=== PATIENT | male | born 1965 | race Caucasian/White ===

== ENCOUNTER 2023-03-19 07:10 | Outpatient (RCR) | payer OTHER, SELFPAY | END 2023-03-29 23:59 | disposition home or self-care (01) | LOC: SPT 07:10 | PROVIDERS: Visit Provider Physical Medicine & Rehabilitation | DX: M25.531 Pain in right wrist (principal); M79.641 Pain in right hand | CPT/HCPCS: 97750 ==

== ENCOUNTER 2023-12-31 09:50 | Day surgery (SDC) | payer SELFPAY ==
[2023-12-31] VITALS (11 sets, daily range): BP systolic 116–180; BP diastolic 63–90; PULSE 47–72; RESP 11–18; TEMP 36.2–36.6; O2SAT 94–98
[2023-12-31] MEDS: sodium chloride 0.9% 1,000 ML 30 ML IV (10:09)
--- NOTE | 2023-12-31 10:15 | W.PM.OPSUD ---
Surgery/Procedure H&P Update DATE OF PROCEDURE: December 31, 2023 DATE H&P PERFORMED: 12/09/23 H&P UPDATE INFORMATION: I have reviewed H&P completed within last 30 days, I have examined patient prior to procedure and No changes to prior documentation PLANNED PROCEDURE: Operation Date: 12/31/23 11:10 Proposed Procedures p Laparoscopic Cholecystectomy(Not Applicable) - Ignacio Roman DO
[2023-12-31 10:23] LABS: Glucose Point of Care 177 mg/dL (70-110)
--- NOTE | 2023-12-31 10:23 | ANES.PREANE2 ---
Pre-Anesthetic Assessment Height/Weight: Height 1.78 m Temp Pulse Resp BP Pulse Ox O2 Del Method 98 F 72 18 180/90 98 Room Air 12/31/23 10:13 12/31/23 10:13 12/31/23 10:13 12/31/23 10:13 12/31/23 10:13 12/31/23 10:13 Operation Date: 12/31/23 11:10 Proposed Procedures p Laparoscopic Cholecystectomy(Not Applicable) - Ignacio Roman DO Familial anesthetic complications: None Was Beta Yossi taken within 24 hours: N/A Was Clonidine taken within 24 hours: N/A Last intake: Intake Last Liquid Date 12/30/23 Last Liquid Time 14:00 Last Solid Date 12/30/23 Last Solid Time 14:00 Social No alcohol and No tobacco Exam alert, oriented x 3, clear to auscultation bilaterally and regular rate & rhythm Airway Mallampati: Class III Dentition: false CV/HEM Hypertension GI Gastroesophageal Reflux Disease Metabolic Diabetes Mellitus and Hyperlipidemia Anesthetic Plan ASA status: 3 Anesthesia: General Risk of > 500 ml blood loss (7ml/kg in children): No Medications/Allergies Home Medications Medication Instructions Recorded Confirmed Last Taken Type atenolol 50 mg tablet 50 mg PO DAILY 12/09/23 12/31/23 12/31/23 History 25 mg metformin 500 mg tablet 1,000 mg PO BID 12/09/23 12/31/23 12/30/23 History morning pantoprazole 40 mg tablet,delayed 40 mg PO BID 6 weeks #84 tabs 12/09/23 12/31/23 12/30/23 Rx release (Protonix) simvastatin 10 mg tablet 10 mg PO DAILY 12/09/23 12/31/23 Unknown History Allergies Allergy/AdvReac Type Severity Reaction Status Date / Time No Known Allergies Allergy Unverified 12/09/23 09:23 Current Medications Generic Name Dose Route Start Last Admin Trade Name Freq PRN Reason Stop Dose Admin Sodium Chloride 1,000 mls @ 30 mls/hr 12/31/23 10:00 12/31/23 10:09 Sodium Chloride 0.9% IV 01/01/24 09:59 30 mls/hr .Q24H JUAN MANUEL Administration PFSH Anesthesia Medical History (Updated 12/09/23 @ 09:55 by Ignacio Roman DO) Family history of colon cancer Surgical History (Updated 12/09/23 @ 09:55 by Ignacio Roman DO) History of surgery on right wrist Hx of colonoscopy 2019 History of esophagogastroduodenoscopy (EGD) 2019 Family History Unknown Cancer rectal/colon Social History Smoking and tobacco/nicotine status: never used tobacco/nicotine Alcohol intake: never Data Anesthesia Cardiac Studies: No Data to Display
[2023-12-31] MEDS: ceFAZolin 2,000 MG in sodium chloride 0.9% (plus) 50 ML 100 MG IV (10:26)
[2023-12-31] MEDS: lidocaine-epi 2% PF 1:200,000 20 mL SDV XX (10:54)
--- NOTE | 2023-12-31 11:11 | P.OP_ITS ---
Operative Report Date of procedure: December 31, 2023 Surgeon: Ignacio Roman DO Brief History: This very pleasant 58-year-old gentleman who presented to my office with abdominal pain. He was diagnosed with symptomatic cholelithiasis. Laparoscopic cholecystectomy is indicated. The risk and benefits were explained and documented. Procedure: Preoperative diagnosis: Symptomatic cholelithiasis Postoperative diagnosis: Same Procedure performed: Laparoscopic cholecystectomy Surgeon: Dr. Ignacio Roman DO Estimated blood loss: 5 mL Specimens: Gallbladder to pathology Complications: None apparent Description of procedure: Patient was wheeled into the operative room and placed on the OR table in a supine position. Abdomen was inspected prepped and draped in usual sterile fas hion. Time-out was performed and all present were in agreement. A 15 blade scalp was used to make a stab incision in the left upper quadrant and intra- abdominal insufflation was achieved using a Veress needle. After localizing the tissue incisions were made and a 5 millimeter trocar was placed into the umbilicus as well as 2 in the right upper quadrant. A 12 millimeter trocar was placed in the epigastrium. Gallbladder was grasped and elevated. The triangle of Calot was carefully dissected using blunt dissection and electrocautery until the triangle of Calot clearly identified. The cystic duct was clipped proximally and double clipped distally. The duct was then ligated proximally. The cystic artery was doubly clipped and ligated. The gallbladder was then removed from the liver bed using electrocautery. The gallbladder was removed from the abdomen using an Endo-Catch bag through the epigastric incision. The epigastric incision had to be extended somewhat in order to remove the gallbladder. The liver bed was inspected and no bleeding was seen. The abdomen was irrigated and suctioned. All ports removed. Skin was washed and dried. Incisions were closed with 4-0 Monocryl in a subcuticular interrupted fashion. Skin glue was applied. Patient tolerated the procedure well.
[2023-12-31] MEDS: HYDROcodone-acetaminophen 7.5-325 mg Tablet 1 TAB PO (12:39)
--- NOTE | 2023-12-31 12:55 | ANE.PACU2 ---
Inpatient post-anesthesia follow up: Airway intact: Yes Vital signs: Temperature 97.5 F Pulse Rate 58 Respiratory Rate 16 Blood Pressure 130/71 Pulse Oximetry 94 Oxygen Delivery Me thod Room Air Oxygen Flow Rate Fraction of Inspir ed Oxygen Hydration adequate: Yes Nausea and vomiting: No Pain level: 1 Mental status: Baseline
== END 2023-12-31 12:57 | disposition home or self-care (01) ==
PROVIDERS: PCP Nurse Practitioner Family; Visit Provider Surgery
PROC: 0FT44ZZ Resection of Gallbladder, Percutaneous Endoscopic Approach (ICD-10-PCS; CPT 47562; principal; 2023-12-31 11:00)
DX: K80.10 Calculus of gallbladder with chronic cholecystitis without obstruction (principal); I10 Essential (primary) hypertension; K21.9 Gastro-esophageal reflux disease without esophagitis; E11.9 Type 2 diabetes mellitus without complications; E78.5 Hyperlipidemia, unspecified; Z79.84 Long term (current) use of oral hypoglycemic drugs; Z80.0 Family history of malignant neoplasm of digestive organs; K42.9 Umbilical hernia without obstruction or gangrene
CPT/HCPCS: 47562; 36416; 82962; 88304; J0690; J1100; J2405; J2704; J2710; J3010; J3490; J7030

== ENCOUNTER 2024-01-15 10:23 | Day surgery (SDC) | payer SELFPAY ==
[2024-01-15] MEDS: sodium chloride 0.9% 1,000 ML 30 ML IV (10:30)
[2024-01-15 10:45] VITALS: BP 159/94; PULSE 77; RESP 18; TEMP 36.6; O2SAT 97; BMI 27.9
[2024-01-15 11:01] LABS: Glucose Point of Care 184 mg/dL (70-110)
--- NOTE | 2024-01-15 11:46 | ANES.PREANE2 ---
Pre-Anesthetic Assessment Height/Weight: Height 1.78 m Weight 88.451 kg Temp Pulse Resp BP Pulse Ox O2 Del Method 98 F 77 18 159/94 97 Room Air 01/15/24 10:45 01/15/24 10:45 01/15/24 10:45 01/15/24 10:45 01/15/24 10:45 01/15/24 10:45 Preop Diagnosis: gerd, reflux, screening Operation Date: 01/15/24 11:30 Proposed Procedures p EGD(Not Applicable) - Ignacio Roberts DO s Colonoscopy(Not Applicable) - Ignacio Roberts DO Was Beta Yossi taken within 24 hours: Yes Was Clonidine taken within 24 hours: N/A Last intake: Intake Last Liquid Date 01/14/24 Last Liquid Time 20:00 Last Solid Date 01/13/24 Last Solid Time 18:00 Social No alcohol and No tobacco Exam alert, oriented x 3, clear to auscultation bilaterally and regular rate & rhythm Airway Submandibular: within normal limits Cervical ROM: within normal limits Mallampati: Class II Dentition: full History/ROS No significant history except as noted and No significant complaints Pulmonary None reported CV/HEM Hypertension METS > 4 None reported Hepatic None reported GI Gastroesophageal Reflux Disease controlled Metabolic Diabetes Mellitus and Hyperlipidemia Neuropsych None reported Anesthetic Plan ASA status: 2 Anesthesia: Anesthesia Evaluation and MAC Risk of > 500 ml blood loss (7ml/kg in children): Yes, adequate IV access and fluids planned Medications/Allergies Home Medications Medication Instructions Recorded Confirmed Last Taken Type atenolol 50 mg tablet 50 mg PO DAILY 12/09/23 01/15/24 01/15/24 History metformin 500 mg tablet 1,000 mg PO BID 12/09/23 01/15/24 01/13/24 History pantoprazole 40 mg tablet,delayed 40 mg PO BID 6 weeks #84 tabs 12/09/23 01/15/24 01/13/24 Rx release (Protonix) simvastatin 10 mg tablet 10 mg PO DAILY 12/09/23 01/15/24 01/13/24 History hydrocodone 7.5 mg-acetaminophen 1 tab PO Q6H PRN pain #20 tabs 12/31/23 01/15/24 01/13/24 Rx 325 mg tablet polyethylene glycol 3350 17 17 g PO DAILY #119 grams 12/31/23 01/15/24 01/13/24 Rx gram/dose oral powder (Miralax) Allergies Allergy/AdvReac Type Severity Reaction Status Date / Time No Known Allergies Allergy Unverified 01/13/24 08:38 [facility] Anesthesia Medical History Family history of colon cancer Surgical History (Updated 01/13/24 @ 09:24 by Ignacio Roberts DO) Hx laparoscopic cholecystectomy 12/31/23 Dr roberts History of surgery on right wrist Hx of colonoscopy 2019 History of esophagogastroduodenoscopy (EGD) 2019 Family History Unknown Cancer rectal/colon Social History Smoking and tobacco/nicotine status: never used tobacco/nicotine Alcohol intake: never Data Anesthesia Cardiac Studies: No Data to Display
--- NOTE | 2024-01-15 12:17 | W.PM.OPSUD ---
Surgery/Procedure H&P Update DATE OF PROCEDURE: January 15, 2024 DATE H&P PERFORMED: 12/09/23 H&P UPDATE INFORMATION: I have reviewed H&P completed within last 30 days, I have examined patient prior to procedure and No changes to prior documentation PREOP DIAGNOSIS: gerd, reflux, screening PLANNED PROCEDURE: Operation Date: 01/15/24 11:30 Proposed Procedures p EGD(Not Applicable) - DO jorge Coffman Colonoscopy(Not Applicable) - Ignacio Roman DO
[2024-01-15 12:38] VITALS: BP 111/65; PULSE 63; RESP 14; TEMP 36.4; O2SAT 92
[2024-01-15 12:55] VITALS: BP 104/67; PULSE 71; RESP 16; O2SAT 95
--- NOTE | 2024-01-15 14:09 | ANE.PACU2 ---
Inpatient post-anesthesia follow up: Vital signs: Temperature 97.5 F Pulse Rate 71 Respiratory Rate 16 Blood Pressure 104/67 Pulse Oximetry 95 Oxygen Delivery Me thod Room Air Oxygen Flow Rate Fraction of Inspir ed Oxygen Hydration adequate: Yes Nausea and vomiting: No Mental status: Baseline Additional Comments: no known anesthetic complications noted
== END 2024-01-15 13:15 | disposition home or self-care (01) ==
PROVIDERS: PCP Nurse Practitioner Family; Visit Provider Surgery
PROC: 0DJ08ZZ Inspection of Upper Intestinal Tract, Via Natural or Artificial Opening Endoscopic (ICD-10-PCS; CPT 43235; principal; 2024-01-15 11:30)
PROC: 0DJD8ZZ Inspection of Lower Intestinal Tract, Via Natural or Artificial Opening Endoscopic (ICD-10-PCS; CPT 45378; 2024-01-15 11:30)
DX: Z12.11 Encounter for screening for malignant neoplasm of colon (principal); K51.40 Inflammatory polyps of colon without complications; K29.50 Unspecified chronic gastritis without bleeding; K21.9 Gastro-esophageal reflux disease without esophagitis; Z80.0 Family history of malignant neoplasm of digestive organs; K80.20 Calculus of gallbladder without cholecystitis without obstruction; K40.20 Bilateral inguinal hernia, without obstruction or gangrene, not specified as recurrent; K42.9 Umbilical hernia without obstruction or gangrene; E11.9 Type 2 diabetes mellitus without complications; E78.5 Hyperlipidemia, unspecified; Z79.84 Long term (current) use of oral hypoglycemic drugs
CPT/HCPCS: 36416; 43239; 45385; 82962; 88305; 88342; J2704; J3010; J7030

== ENCOUNTER → 2024-01-21 05:41 | Day surgery (SDC) | payer MEDICAID, SELFPAY ==
[2024-01-21] VITALS (10 sets, daily range): BP systolic 107–154; BP diastolic 53–89; PULSE 52–67; RESP 17–20; TEMP 36–36.3; O2SAT 93–100; BMI 27.2
--- NOTE | 2024-01-21 05:54 | P.HP_ITS ---
Providers/Chief Complaint Primary Care Provider: ALLYSSA Snyder Chief Complaint: K80.20 History of Present Illness Carson Dubon is a 58 year old male Review of Systems General: Reports: 10 or more systems reviewed and unremarkable except in HPI and below Medications/Allergies Home Medications Medication Instructions Recorded Confirmed Last Taken Type atenolol 50 mg tablet 50 mg PO DAILY 12/09/23 01/20/24 01/20/24 History metformin 500 mg tablet 1,000 mg PO BID 12/09/23 01/20/24 01/20/24 History pantoprazole 40 mg tablet,delayed 40 mg PO BID 6 weeks #84 tabs 12/09/23 01/20/24 01/20/24 Rx release (Protonix) simvastatin 10 mg tablet 10 mg PO DAILY 12/09/23 01/20/24 01/13/24 History hydrocodone 7.5 mg-acetaminophen 1 tab PO Q6H PRN pain #20 tabs 12/31/23 01/20/24 01/13/24 Rx 325 mg tablet polyethylene glycol 3350 17 17 g PO DAILY #119 grams 12/31/23 01/20/24 01/18/24 Rx gram/dose oral powder (Miralax) Allergies Allergy/AdvReac Type Severity Reaction Status Date / Time No Known Allergies Allergy Unverified 01/20/24 10:02 PFSH Acute PFSH: Medical History Family history of colon cancer Surgical History (Updated 01/13/24 @ 09:24 by Ignacio Roberts DO) Hx laparoscopic cholecystectomy 12/31/23 Dr roberts History of surgery on right wrist Hx of colonoscopy 2019 History of esophagogastroduodenoscopy (EGD) 2019 Family History Unknown Cancer rectal/colon Social History Smoking and tobacco/nicotine status: never used tobacco/nicotine Alcohol intake: never A&P Assessment and plan (1) Bilateral inguinal hernia: (2) Umbilical hernia: Plan Laparoscopic umbilical and bilateral inguinal hernia repairS with mesh Attestations Medical Necessity Statement*: home Coding Level of Care Code Acute Code for [facility] Fwd Diagnoses Bilateral inguinal hernia K40.20 Umbilical hernia K42.9
[2024-01-21] MEDS: sodium chloride 0.9% 1,000 ML 30 ML IV (06:20)
--- NOTE | 2024-01-21 06:58 | ANES.PREANE2 ---
Pre-Anesthetic Assessment Height/Weight: Height 1.78 m Weight 86.183 kg Temp Pulse Resp BP Pulse Ox O2 Del Method 97 F L 62 18 154/89 97 Room Air 01/21/24 06:13 01/21/24 06:13 01/21/24 06:13 01/21/24 06:13 01/21/24 06:13 01/21/24 06:13 Operation Date: 01/21/24 07:00 Proposed Procedures p Laparoscopic Umbilical Hernia Repair w/ Mesh(Not Applicable) - Ignacio Roberts DO s Laparoscopic Inguinal Hernia Repair w/Mesh(Bilateral) - Ignacio Roberts DO Familial anesthetic complications: None Was Beta Yossi taken within 24 hours: N/A Was Clonidine taken within 24 hours: N/A Last intake: Intake Last Liquid Date 01/20/24 Last Liquid Time 08:00 Last Solid Date 01/20/24 Last Solid Time 08:00 Social No alcohol and No tobacco Exam alert, oriented x 3, clear to auscultation bilaterally and regular rate & rhythm Airway Mallampati: Class III Dentition: false CV/HEM Hypertension GI Gastroesophageal Reflux Disease Metabolic Hyperlipidemia Anesthetic Plan ASA status: 2 Anesthesia: General Risk of > 500 ml blood loss (7ml/kg in children): No Medications/Allergies Home Medications Medication Instructions Recorded Confirmed Last Taken Type atenolol 50 mg tablet 50 mg PO DAILY 12/09/23 01/20/24 01/20/24 History metformin 500 mg tablet 1,000 mg PO BID 12/09/23 01/20/24 01/20/24 History pantoprazole 40 mg tablet,delayed 40 mg PO BID 6 weeks #84 tabs 12/09/23 01/20/24 01/20/24 Rx release (Protonix) simvastatin 10 mg tablet 10 mg PO DAILY 12/09/23 01/20/24 01/13/24 History hydrocodone 7.5 mg-acetaminophen 1 tab PO Q6H PRN pain #20 tabs 12/31/23 01/20/24 01/13/24 Rx 325 mg tablet polyethylene glycol 3350 17 17 g PO DAILY #119 grams 12/31/23 01/20/24 01/18/24 Rx gram/dose oral powder (Miralax) Allergies Allergy/AdvReac Type Severity Reaction Status Date / Time No Known Allergies Allergy Unverified 01/21/24 06:16 PFSH Anesthesia Medical History Family history of colon cancer Surgical History (Updated 01/13/24 @ 09:24 by Ignacio Roberts DO) Hx laparoscopic cholecystectomy 12/31/23 Dr roberts History of surgery on right wrist Hx of colonoscopy 2019 History of esophagogastroduodenoscopy (EGD) 2019 Family History Unknown Cancer rectal/colon Social History Smoking and tobacco/nicotine status: never used tobacco/nicotine Alcohol intake: never Data Anesthesia Cardiac Studies: No Data to Display
[2024-01-21] MEDS: ceFAZolin 2,000 MG in sodium chloride 0.9% (plus) 50 ML 100 MG IV (07:00)
[2024-01-21] MEDS: lidocaine-epi 2% PF 1:200,000 20 mL SDV XX (07:39)
[2024-01-21 08:12] LABS: Glucose Point of Care 145 mg/dL (70-110)
--- NOTE | 2024-01-21 08:51 | PM.OP ---
Operative Report Date of procedure: January 21, 2024 Pre-op diagnosis: Left inguinal hernia Right inguinal hernia Umbilical hernia Post-op diagnosis: Indirect left inguinal hernia Indirect right inguinal hernia Umbilical hernia Procedure done: Laparoscopic (TEPP) repair of left inguinal hernia with mesh Laparoscopic (TEPP)repair of right inguinal hernia with mesh Laparoscopic repair of umbilical hernia with mesh Implants: Left extra-large 3D max Bard mesh Right extra-large 3D max Bard mesh 11 cm round Ventralight mesh Specimens removed/disposition: Hernia sac Surgeon: Ignacio Roman DO Anesthesia: General and Local Estimated blood loss (mL): 5 Complications: None apparent Brief History: This very pleasant 58-year-old gentleman who came to my office with symptomatic bilateral inguinal hernias and an umbilical hernia. Laparoscopic repairs with mesh were indicated. The risks and benefits were explained and documented. Procedure: Patient was wheeled into the operative room and placed on the OR table in a supine position. Abdomen was inspected prepped and draped in usual sterile fashion. Time-out was performed and all present were in agreement. A 15 blade scalpel was used to make 1.2 centimeter incision infraumbilically. Combination of sharp and blunt dissection was performed down to the anterior rectus sheath which was opened sharply. The dissecting balloon was then inserted into the space of Retzius and blown up. We put the camera into the port and identified that we were in the correct space. I then placed 2 5 millimeter trocars suprapubically in the midline. I then used endokitners to bluntly dissect in the space of Retzius out laterally. An indirect inguinal hernia was identified on the right. Blunt dissection was performed to dissect down the hernia sac until the vas deferens dove medially. An extra-large 3D max Bard right inguinal mesh was then placed into the space of Retzius. The mesh was unrolled and tacked once medially at the pubic bone. The mesh laid out nicely over the spermatic cord. An indirect inguinal hernia was identified on the left. Blunt dissection was performed to dissect down the hernia sac until the vas deferens dove medially. An extra-large 3D max Bard left inguinal mesh was then placed into the space of Retzius. The mesh was unrolled and tacked once medially at the pubic bone. The mesh laid out nicely over the spermatic cord. Hernia sacs were held underneath the meshes as the insufflation was released. Attention was then brought to the umbilical hernia. After localization, a 15 blade scalp was used to make a 5 millimeter incision left upper quadrant. A Veress needle was placed into the incision and intra-abdominal insufflation was brought to 15 millimeters of mercury. A 12 millimeter trocar was placed into the left lower quadrant. The energy but device was then used to cut out the hernia sac. Hernia defect was 1 cm in diameter. An 11 cm Ventralight mesh was placed into the abdomen and brought up through the umbilicus using an the Chris-Joie. The mesh was then tacked in place in a double crown fashion. The skeleton of the mesh was removed via the left lower quadrant. The hernia sac was then removed from the abdomen via the left lower quadrant. The left lower quadrant port site was closed with an 0 Vicryl suture in a Chris-Joie in a [id number] fashion. Incisions were closed with 4 O Vicryl in a subcuticular interrupted fashion. Skin glue was applied. Patient tolerated the procedure well.
[2024-01-21] MEDS: HYDROcodone-acetaminophen 10-325 mg Tablet 1 TAB PO (10:06)
--- NOTE | 2024-01-21 10:25 | ANE.PACU2 ---
Inpatient post-anesthesia follow up: Airway intact: Yes Vital signs: Temperature 96.8 F Pulse Rate 52 Respiratory Rate 18 Blood Pressure 107/59 Pulse Oximetry 100 Oxygen Delivery Me thod Room Air Oxygen Flow Rate Fraction of Inspir ed Oxygen Hydration adequate: Yes Nausea and vomiting: No Pain level: 1 Mental status: Baseline
== END | disposition home or self-care (01) ==
PROVIDERS: PCP Nurse Practitioner Family; Visit Provider Surgery
PROC: 0WQF4ZZ Repair Abdominal Wall, Percutaneous Endoscopic Approach (ICD-10-PCS; CPT 49591; principal; 2024-01-21 07:00)
PROC: (CPT 49650; 2024-01-21 07:00)
DX: K40.20 Bilateral inguinal hernia, without obstruction or gangrene, not specified as recurrent (principal); K42.9 Umbilical hernia without obstruction or gangrene; E78.5 Hyperlipidemia, unspecified; I10 Essential (primary) hypertension; Z79.84 Long term (current) use of oral hypoglycemic drugs; Z80.0 Family history of malignant neoplasm of digestive organs
CPT/HCPCS: 49591; 49650; 36416; 82962; 88302; C1781; J0131; J0690; J1100; J1171; J2371; J2405; J2704; J2710; J3010; J3490; J7030; J9999

== ENCOUNTER → 2024-08-13 09:55 | Outpatient (BNVA) | payer MEDICAID, SELFPAY | PROVIDERS: PCP Nurse Practitioner Family; Visit Provider Surgery | DX: R03.0 Elevated blood-pressure reading, without diagnosis of hypertension (principal); M54.50 Low back pain, unspecified | CPT/HCPCS: 99214 ==

== ENCOUNTER → 2024-11-16 10:29 | Outpatient (BNVA) | payer MEDICAID, SELFPAY | PROVIDERS: PCP Nurse Practitioner Family; Visit Provider Surgery | DX: M54.50 Low back pain, unspecified (principal); G31.84 Mild cognitive impairment of uncertain or unknown etiology; K21.9 Gastro-esophageal reflux disease without esophagitis; Z90.49 Acquired absence of other specified parts of digestive tract; K40.20 Bilateral inguinal hernia, without obstruction or gangrene, not specified as recurrent; K42.9 Umbilical hernia without obstruction or gangrene; K80.20 Calculus of gallbladder without cholecystitis without obstruction; Z98.890 Other specified postprocedural states; Z87.19 Personal history of other diseases of the digestive system; R10.13 Epigastric pain | CPT/HCPCS: 99214 ==

== ENCOUNTER → 2024-12-03 08:56 | Outpatient (BNVA) | payer MEDICAID, SELFPAY | PROVIDERS: PCP Nurse Practitioner Family; Visit Provider Orthopaedic Surgery | DX: M48.062 Spinal stenosis, lumbar region with neurogenic claudication (principal); M54.50 Low back pain, unspecified | CPT/HCPCS: 72110; 99203 ==

== ENCOUNTER 2024-12-16 10:29 | Outpatient (RCR) | payer MEDICAID, SELFPAY | END 2024-12-28 23:59 | disposition home or self-care (01) | LOC: SPT 10:29 | PROVIDERS: Visit Provider Orthopaedic Surgery | DX: M54.9 Dorsalgia, unspecified (principal); M54.2 Cervicalgia; G89.29 Other chronic pain | CPT/HCPCS: 97110; 97161 ==

== ENCOUNTER 2024-12-29 16:48 | Outpatient (RCR) | payer MEDICAID, SELFPAY | END 2025-01-27 23:59 | disposition home or self-care (01) | LOC: SPT 16:48 | PROVIDERS: Visit Provider Orthopaedic Surgery | DX: M54.9 Dorsalgia, unspecified (principal); M54.2 Cervicalgia; G89.29 Other chronic pain | CPT/HCPCS: 97110; 97140 ==

== ENCOUNTER → 2025-02-02 14:47 | Outpatient (BNVA) | payer MEDICAID, SELFPAY | PROVIDERS: PCP Nurse Practitioner Family; Visit Provider Orthopaedic Surgery | DX: M54.2 Cervicalgia (principal); M48.062 Spinal stenosis, lumbar region with neurogenic claudication; M54.50 Low back pain, unspecified | CPT/HCPCS: 72050; 72110; 99214 ==

== ENCOUNTER 2025-02-23 08:55 | Outpatient (CLI) | payer MEDICAID, SELFPAY ==
--- NOTE | 2025-02-23 09:15 | MR_ITS ---
WS: [id number] MRI CERVICAL SPINE NONCONTRAST TECHNIQUE: Sagittal T1, T2 and STIR imaging. Axial T2, gradient, and fiesta imaging. CLINICAL INFORMATION: Neck Pain COMPARISON: None. FINDINGS: Straightening of normal cervical lordosis. Disc bulging worse at C5-C6 and C6-C7. C2-C3: Mild facet arthropathy. Mild RIGHT bony foraminal narrowing. C3-C4: Moderate facet arthropathy. Mild RIGHT bony foraminal narrowing. Tiny central protrusion. C4-C5: Moderate facet arthropathy. Mild bilateral bony foraminal narrowing. C5-C6: Disc osteophyte complex with slight indentation cervical cord. Mild to moderate central canal stenosis. Severe bilateral bony foraminal narrowing. Moderate facet arthropathy with uncovertebral joint hypertrophy. C6-C7: Shallow central protrusion. Small annular fissure. Severe LEFT and moderate RIGHT bony foraminal narrowing. Uncovertebral joint hypertrophy. C7-T1: Mild LEFT and no significant RIGHT foraminal narrowing. Visualized brain stem structures: Normal. Prevertebral soft tissues: Normal. MR/MR cervical spin wo con* [id number] IMPRESSION: 1. Straightening of the normal cervical lordosis. 2. Mild to moderate central canal stenosis C5-C6 and C6-C7 with central protru sions and indentation of the cervical cord worse at C5-6. 3. Moderate to severe bilateral C5-C6 and LEFT greater than RIGHT C6-7 foramin al narrowing.
--- NOTE | 2025-02-23 10:00 | MR_ITS ---
WS: [id number] MRI LUMBAR SPINE NONCONTRAST TECHNIQUE: Sagittal T1, T2 and STIR imaging. Axial T1 and T2 imaging. CLINICAL INFORMATION: Back Pain COMPARISON: None. FINDINGS: Counting performed from the craniocervical junction. S1 is lumbarized. Recommend plain film correlation prior to surgical intervention. L1-L2: Mild annular bulging. Spinal canal and foramen are patent. L2-L3: Mild annular bulging. Mild facet arthropathy. Small LEFT foraminal protrusion with mild LEFT foraminal narrowing. L3-L4: Mild annular bulging. Narrowing of the subarticular recess bilaterally. Mild LEFT foraminal narrowing. Moderate facet arthropathy. L4-L5: Mild annular bulging. Mild LEFT foraminal narrowing. Moderate facet arthropathy. L5-S1: Mild annular bulging. Shallow central protrusion with impingement on the traversing S1 nerve roots bilaterally. Mild RIGHT than LEFT foraminal narrowing. S1-S2: Mild disc bulging. Moderate facet arthropathy. Spinal canal and foramen are patent. Visualized pelvic bony structures: Normal. Paravertebral soft tissues: Normal. MR/MR lumbar spine wo con* [id number] IMPRESSION: 1. Counting performed from the craniocervical junction. S1 is lumbarized. Rec ommend plain film correlation prior to surgical intervention. 2. Disc bulging L5-S1 with impingement of the traversing S1 nerve roots bilate rally in the subarticular recess. 3. Moderate RIGHT greater than LEFT L5-S1 foraminal narrowing. 4. Small LEFT foraminal protrusion L2-3 with mild LEFT foraminal narrowing. 5. Moderate facet arthropathy worse in the lower lumbar spine L5-S1 and S1-S2
== END 2025-02-23 08:56 | disposition home or self-care (01) ==
PROVIDERS: PCP Nurse Practitioner Family; Visit Provider Orthopaedic Surgery
DX: M48.02 Spinal stenosis, cervical region (principal); R93.7 Abnormal findings on diagnostic imaging of other parts of musculoskeletal system; M50.322 Other cervical disc degeneration at C5-C6 level; M50.323 Other cervical disc degeneration at C6-C7 level; M47.892 Other spondylosis, cervical region; M25.78 Osteophyte, vertebrae; M53.82 Other specified dorsopathies, cervical region; M48.03 Spinal stenosis, cervicothoracic region; M51.379 Other intervertebral disc degeneration, lumbosacral region without mention of lumbar back pain or lower extremity pain; M48.07 Spinal stenosis, lumbosacral region; M51.26 Other intervertebral disc displacement, lumbar region; M47.897 Other spondylosis, lumbosacral region; M47.898 Other spondylosis, sacral and sacrococcygeal region; M51.369 Other intervertebral disc degeneration, lumbar region without mention of lumbar back pain or lower extremity pain; M47.896 Other spondylosis, lumbar region; M53.3 Sacrococcygeal disorders, not elsewhere classified
CPT/HCPCS: 72141; 72148

== ENCOUNTER → 2025-04-05 10:10 | Outpatient (BNVA) | payer MEDICAID, SELFPAY | PROVIDERS: PCP Nurse Practitioner Family; Visit Provider Orthopaedic Surgery | DX: M48.062 Spinal stenosis, lumbar region with neurogenic claudication (principal); M54.2 Cervicalgia; M54.12 Radiculopathy, cervical region; G89.29 Other chronic pain | CPT/HCPCS: 99214 ==

== ENCOUNTER → 2025-04-07 14:20 | Outpatient (BNVA) | payer MEDICAID, SELFPAY | PROVIDERS: PCP Nurse Practitioner Family; Visit Provider Nurse Practitioner Family | DX: M54.2 Cervicalgia (principal); M54.50 Low back pain, unspecified; G89.29 Other chronic pain | CPT/HCPCS: 99214 ==

== ENCOUNTER → 2025-04-13 13:52 | Outpatient (BNVA) | payer MEDICAID, SELFPAY | PROVIDERS: PCP Nurse Practitioner Family; Visit Provider Nurse Practitioner Family | DX: M79.18 Myalgia, other site (principal); M54.50 Low back pain, unspecified; G89.29 Other chronic pain; M54.2 Cervicalgia | CPT/HCPCS: 20553; 99214; J1010; J3490 ==

== ENCOUNTER → 2025-04-27 14:19 | Outpatient (BNVA) | payer MEDICAID, SELFPAY | PROVIDERS: PCP Nurse Practitioner Family; Visit Provider Nurse Practitioner Family | DX: M54.50 Low back pain, unspecified (principal); G89.29 Other chronic pain; M54.2 Cervicalgia | CPT/HCPCS: 99214 ==